=== PATIENT | female | born 1970 | race Caucasian/White ===

== ENCOUNTER 2021-11-21 05:21 | Day surgery (SDC) | payer OTHER ==
[2021-11-16 16:11] VITALS: BMI 36.1
[2021-11-21] MEDS ORDERED: SUCCINYLCHOLINE CHLORIDE 200 MG/10 ML SYRINGE ONE (07:23)
[2021-11-21] MEDS ORDERED: PROPOFOL 20 ML ONE ×3 (07:23)
[2021-11-21] MEDS ORDERED: oxyCODONE HCL 5 MG TABLET PO PRN (08:44)
[2021-11-21] MEDS ORDERED: PROMETHAZINE HCL 25 MG/1 ML VIAL IVPUSH PRN (08:44)
[2021-11-21] MEDS ORDERED: ONDANSETRON 4 MG/2 ML VIAL IVPUSH PRN (08:44)
[2021-11-21 09:44] VITALS: TEMP 97.9
[2021-11-21 10:29] VITALS: BP 110/73; PULSE 60
== END 2021-11-21 10:41 | disposition home or self-care (01) ==
LOC: JASU-SURG 05:21
PROVIDERS: ATTEND Obstetrics & Gynecology
PROC: 0UB98ZX Excision of Uterus, Via Natural or Artificial Opening Endoscopic, Diagnostic (ICD-10-PCS; principal; 2021-11-21 07:30)
PROC: 0UDB7ZX Extraction of Endometrium, Via Natural or Artificial Opening, Diagnostic (ICD-10-PCS; 2021-11-21 07:30)
DX: N84.0 Polyp of corpus uteri (principal)
CPT/HCPCS: 81025; 86850; 86900; 86901; 88305-TC; 94760